=== PATIENT | male | born 1950 | race Caucasian/White ===

== ENCOUNTER 2018-12-16 14:07 | Emergency (ER) | payer OTHER ==
[~2018-12-16] VITALS: Ht 182.9 cm; Wt 106.6 kg
[2018-12-16 14:30] VITALS: Ht 182.9 cm; Wt 106.6 kg
[2018-12-16 18:10] VITALS: BP 135/90
== END 2018-12-16 18:10 | disposition home or self-care (01) ==
LOC: ED 14:07
DX: S73.005A Unspecified dislocation of left hip, initial encounter (principal); X58.XXXA Exposure to other specified factors, initial encounter; Y93.89 Activity, other specified; Y92.89 Other specified places as the place of occurrence of the external cause; Y99.8 Other external cause status
CPT/HCPCS: G0500; J2060; J2270; J2704; J3490; Q0092